=== PATIENT | female | born 1930 | race Caucasian/White ===

== ENCOUNTER 2022-05-03 11:25 | Emergency (ER) | payer OTHER, BC ==
[~2022-05-03] VITALS: Ht 149.9 cm; Wt 64.4 kg
[2022-05-03 11:37] VITALS: BP 170/79
--- NOTE | 2022-05-03 11:43 | NUR ---
Patient ambulated with cane assisted by daughter to restroom for UA. To lobby at this time.
--- NOTE | 2022-05-03 12:18 | NUR ---
89/F BIB SELF BY DAUGHTER C/O 02/06 LUQ ABD PAIN, SHARP/INTERMITTENT, RADIATING TO EPIGASTRIC REGION X 2 WEEKS. WORSENS WITH LYING POSITION. DENIES N/V/D, CONSTIPATION, CHEST PAIN. URINE COLLECTED. PMH: HTN, DM2, GERD MEDS: XANAX, NORVASC, METFORMIN, INSULIN BASAGLAR, LISINOPRIL, TRAMADOL, PRILOSEC, LASIX, JANUVIA, MONTELUKAST, GABAPENTIN NKDA SX: HERNIA REPAIR
[2022-05-03 12:54] LABS: APPEARANCE,URINE CLEAR (CLEAR); BILIRUBIN,URINE NEGATIVE (NEGATIVE); BLOOD, URINE NEGATIVE (NEGATIVE); COLOR,URINE YELLOW (YELLOW); LEUKOCYTE ESTERASE ,URINE 1+ (NEGATIVE); NITRITE, URINE NEGATIVE (NEGATIVE); UGLUCOSE NEGATIVE (NEGATIVE)
[2022-05-03 13:44] LABS: BASOPHILS % (AUTO) 0.4 % (0.0-2.0); EOSINOPHILS # (AUTO) 0.2 K/uL (0-0.4); EOSINOPHILS % (AUTO) 2.7 % (0.0-4.0); HEMATOCRIT 38.4 % (36-48); HEMOGLOBIN 12.7 g/dL (12.0-16.0); LYMPHOCYTES # (AUTO) 2.5 K/uL (2.5-16.5); LYMPHOCYTES % (AUTO) 36.2 % (20.5-51.1); MEAN CORPUSCULAR HEMOGLOBIN 30 pg (27-31); MEAN CORPUSCULAR HGB CONC 33 g/dL (33-37); MEAN CORPUSCULAR VOLUME 90.9 fL (80-94); MONOCYTES # (AUTO) 0.5 K/uL (0.8-1.0); MONOCYTES % (AUTO) 6.9 % (1.7-9.3); NEUTROPHILS # (AUTO) 3.7 K/uL (1.8-7.7); NEUTROPHILS % (AUTO) 53.8 % (42.2-75.2); PLATELET COUNT (AUTO) 276 K/uL (140-450); RED BLOOD CELL COUNT(AUTO) 4.22 MIL/uL (4.20-5.40); RED CELL DISTRIBUTION WIDTH 14.2 % (11.6-13.7); WHITE BLOOD COUNT (AUTO) 6.9 K/uL (4.8-10.8)
--- NOTE | 2022-05-03 15:34 | NUR ---
PT AMBULATED TO ER BED 11
[2022-05-03 16:23] LABS: RBC,URINE 0-5 /HPF (0-5); WBC,URINE 16-25 (MOD) /HPF (0-5)
[2022-05-03 17:27] LABS: ANION GAP 10.7 (8-16); CARBON DIOXIDE 28.8 mmol/L (21-32); CHLORIDE 100 mmol/L (98-107); CREATININE 1.4 mg/dL (0.6-1.3); GLUCOSE 323 mg/dL (74-106); POTASSIUM 4.5 mmol/L (3.5-5.1); SODIUM SERUM 135 mmol/L (136-145); UREA NITROGEN, BLOOD 21 mg/dL (7-18)
[2022-05-03 17:30] LABS: ALBUMIN 3.2 g/dL (3.4-5.0); ASPARTATE AMINOTRANSFERASE 23 U/L (15-37); LIPASE 61 U/L (73-393); TOTAL BILIRUBIN 0.3 mg/dL (0.0-1.0)
--- NOTE | 2022-05-03 17:44 | NUR ---
PATIENT AMBULATED TO CHAIR C
[2022-05-03] MEDS ORDERED: NIRM1TAB PO (17:56)
[2022-05-03] MEDS ORDERED: LEVO750T75 PO (18:55)
[2022-05-03 19:04] VITALS: BP 140/68
--- NOTE | 2022-05-03 19:07 | NUR ---
Patient discharged with v/s stable. Written and verbal after care instructions given and explained for Antibiotic Medicine, Adult, Antibiotic Resistance. Patient alert, oriented and verbalized understanding of instructions. Ambulatory with by caregiver. All questions addressed prior to discharge. ID band removed. Patient advised to follow up with PMD. Rx of Levofloxacin given. Patient educated on indication of medication including possible reaction and side effects. Opportunity to ask questions provided and answered. Copies of CT, RAD, blood work given to patient.
== END 2022-05-03 19:56 | disposition home or self-care (01) ==
LOC: MED 11:25
DX: J18.9 Pneumonia, unspecified organism (principal); E11.9 Type 2 diabetes mellitus without complications; K21.9 Gastro-esophageal reflux disease without esophagitis; I10 Essential (primary) hypertension; F41.9 Anxiety disorder, unspecified; Z79.4 Long term (current) use of insulin; Z79.899 Other long term (current) drug therapy
CPT/HCPCS: 36415; 71045; 74177; 80053; 81001; 81003; 83690; 84484; 85025; 87086; 93005; 99285; Q9967